=== PATIENT | female | born 1955 | race Caucasian/White ===

== ENCOUNTER → 2020-06-05 11:04 | Outpatient (CLI) | payer OTHER, SELFPAY ==
[2020-06-05 13:07] LABS: COVID19 -Nasal RAPID Negative (Negative)
== END ==
PROVIDERS: PCP Family Medicine; Visit Provider Physician Assistant
DX: Z20.822 Contact with and (suspected) exposure to COVID-19 (principal)
CPT/HCPCS: 87635

== ENCOUNTER 2020-06-07 09:13 | Day surgery (SDC) | payer OTHER, SELFPAY ==
--- NOTE | 2020-06-06 19:32 | P.OP_ITS ---
Operative Date/Time/Diagnoses Date of procedure: 06/07/20 Time of procedure: 10:45 Procedure & Clinicians Procedure: Preoperative diagnoses: 1. Right Significant Nuclear sclerotic cataract 2. Astigmatism which is to be corrected with a toric intraocular lens implant 3. Multiple strabismus surgeries with conjunctival scarring. Prisms. 4. Amblyopia left eye. Postoperative diagnoses: 1. Cataract removal with phacoemulsification with toric posterior chamber int raocular lens implant placed. Procedure: Phacoemulsification with posterior chamber toric intraocular lens implant. Surgeon: Nai Lowery MD Complications: None Specimen: None Implant: DIU 150+18.5 [place] 002 Blood loss: None Anesthesia: General with topical anesthesia Description of procedure: Patient presents with a complaint of decreased vision due to cataract which is affecting activities of daily living distance and near. This was our best seeing eye due to multiple surgeries for strabismus and left eye being severely amblyopic. The patient wants surgery to improve vision and astigmatism. She requests general anesthesia due to anxiety over multiple surgeries as well as need for quick visual recovery as it is her better seeing. She understands the extra risk history the COVID-19 epidemic and desires to proceed. The patient was taken to the operating room and proparacaine drops placed. Indelible ink laws were placed at the 90 and 180 degree meridian. The patient was placed on the operating room table and given IV sedation. A laryngeal mask airway was placed and she was put into position. The eye is manually massaged for 30 sec, prepped using baby shampoo solution due to multiple allergies, and draped in the usual sterile fashion. Topical preservative-free moxifloxacin was placed on the cornea prior to the surgery. Temporal approach was made, a 1 mm side-port incision was made 90? from the proposed corneal wound. Phenylephrine 1.5% mixed with 1% xylocaine 0.2 cc was placed into the anterior chamber. Viscoat followed by Shahid was then placed. A 2.6 mm clear incision with a 2.6 mm blade was placed at the 170 degree meridian. A 360 degree capsulorrhexis style capsulotomy was then performed with a cystitome needle on a Healon. Hydrodelineation and hydrodissection were performed. The phacoemulsification unit is introduced, and sculpting used to groove the central lens. It is then removed in chopping mode. Epi nucleus is removed with epinuclear mode and irrigation aspiration was used to remove the peripheral cortex. The posterior capsule is polished. The intraocular lens is selected, inspected, power confirmed, and placed in the posterior chamber at the desired meridian of 002. The pupil was not constricted. The wound was stromally hydrated and tested for leaks, there was none and it was left sutureless. Vigamox 0.1 cc was placed into the anterior chamber. Kenalog 0.2 cc was placed in the superior subconjunctival space. A drop of antibiotic and was placed and the eye had a protective bandage contact lens placed and then an eye shield. The patient was stable and returned to the recovery room in excellent condition. Dictated by: Nai Lowery MD Copy to: [facility] Same procedure as scheduled: Yes
--- NOTE | 2020-06-06 19:32 | PM.PREOP ---
Pre-operative Note COVID-19 COVID-19 status: Negative Interval Note History & Physical reviewed/Exam performed by Physician: Yes Changes to H&P: No H&P completed within 30 days and has changed as indicated here:: Has allergy to the topical a Betadine and most other preps therefore baby shampoo will be used. Wants general anesthesia as she has had 17 previous eye surgeries and this is her better seeing eye. A laryngeal mask airway will be used.
[2020-06-07] VITALS (7 sets, daily range): BP systolic 139–168; BP diastolic 71–93; PULSE 62–93; RESP 12–16; TEMP 36.1–36.7; O2SAT 91–100; BMI 26.6
[2020-06-07] MEDS: LACTATED RINGERS 1,000 ML 100 ML IV (09:53)
[2020-06-07] MEDS: PROPARACAINE 0.5% OPHTH SOL 2 DROPS EYE-OP (09:55)
[2020-06-07] MEDS: CATARACT EYE COMPOUND (10 DROPS/SYRINGE) 3 DROPS EYE-OP (10:00)
[2020-06-07] MEDS: PHENYLEPHRINE/LIDOCAINE VIAL (OR) 0.2 ML EYE-OP (11:37)
[2020-06-07] MEDS: CHONDROIDTIN/SOD HYALURONATE 1.05 ML SYRINGE INTRAOCULA (11:37)
[2020-06-07] MEDS: TRIAMCINOLONE 50 MG/5 ML VIAL INJ (11:38)
[2020-06-07] MEDS: BALANCED SALT IRRIG SOLN NO.2 500 ML, EPINEPHrine 1 MG IRR (11:40)
[2020-06-07] MEDS: MOXIFLOXACIN INJ 4 MG/0.8 ML VIAL 0.5 MG EYE-OP (11:51)
[2020-06-07] MEDS: HYALURONATE SODIUM 10 MG/ML SYRINGE INJ (11:54)
--- NOTE | 2020-06-07 12:04 | SUR.OPER ---
CHARTED THAT OINTMENT WAS GIVEN, BUT WE DID NOT END UP USING IT SO IT WAS TAKEN OFF MAR
--- NOTE | 2020-06-07 15:02 | SUR.PHASEII ---
D/C instructions done by GABO Banuelos, pt left when ready and left in stable condition.
== END 2020-06-07 12:55 | disposition home or self-care (01) ==
LOC: OR 09:15
PROVIDERS: PCP Family Medicine; Referring Provider Ophthalmology; Visit Provider Ophthalmology
PROC: (CPT 66984; principal; 2020-06-07 10:45)
DX: H25.811 Combined forms of age-related cataract, right eye (principal); H52.201 Unspecified astigmatism, right eye; N18.2 Chronic kidney disease, stage 2 (mild); Z86.16 Personal history of COVID-19
CPT/HCPCS: 66984; J0171; J2704; J3301

== ENCOUNTER → 2020-06-26 11:08 | Outpatient (CLI) | payer OTHER, SELFPAY ==
[2020-06-26 14:43] LABS: COVID19 -Nasal RAPID Negative (Negative)
== END ==
PROVIDERS: PCP Family Medicine; Visit Provider Student in an Organized Health Care Education/Training Program
DX: Z01.812 Encounter for preprocedural laboratory examination (principal); Z20.822 Contact with and (suspected) exposure to COVID-19
CPT/HCPCS: 87635

== ENCOUNTER 2020-06-28 09:20 | Day surgery (SDC) | payer OTHER, SELFPAY ==
--- NOTE | 2020-06-27 17:44 | PM.PREOP ---
Pre-operative Note COVID-19 COVID-19 status: Negative Interval Note History & Physical reviewed/Exam performed by Physician: Yes Changes to H&P: No
--- NOTE | 2020-06-28 08:01 | P.OP_ITS ---
Operative Date/Time/Diagnoses Date of procedure: 06/28/20 Time of procedure: 10:45 Procedure & Clinicians Procedure: Preoperative diagnoses: 1. Left significant combined cortical and nuclear sclerotic cataract 2. Astigmatism which is to be corrected with a toric intraocular lens implant. 3. Need for general anesthesia due to anxiety and scar tissue from 17 previous strabismus surgeries. 4. Multiple allergies. 5. Anxiety disorder 6. Depression 7. Previous COVID-19 without residual effects. 8. Seventeen previous strabismus surgeries. 9. Strabismus with the need for prisms. Postoperative diagnoses: 1. Cataract removal with phacoemulsification with toric posterior chamber intraocular lens implant placed. Procedure: Phacoemulsification with posterior chamber toric intraocular lens implant. Surgeon: Nai Lowery MD Complications: None Specimen: None Implant: [id number]+21.5 [place] 004 -2.00 target Blood loss: None Anesthesia: Retrobulbar with monitored standby Description of procedure: Patient presents with a complaint of decreased vision due to cataract which is affecting activities of daily living especially affecting distance. She has double vision with current on balanced of vision after for surgery and has had multiple strabismus surgeries. The blur is causing increased symptoms and she would like a -2 target to help lessen some of her chronic optimal phenomenon. She also wears prism glasses. She is very happy with her right eye postsurgical result. The patient also wants surgery to improve vision and astigmatism. She requires general anesthesia due to her depressive anxiety disorder and her multiple previous surgeries. She states she would be unable to complete surgery under local. She has had previous COVID-19 disease as well as vaccines. She has tested negative within 72 hours for active iris prior to this procedure. She understands the extra risk for surgery during the COVID-19 epidemic and wishes to proceed. The patient was taken to the operating room and proparacaine drops placed. Indelible ink laws were placed at the 90 and 180 degree meridian. The patient was placed on the operating room table and given IV sedation. A laryngeal mask airway is placed without difficulty. The eye is manually massaged for 30 sec, prepped using Baby Shampoo due to multiple allergies including severe allergies to betadine solution, and draped in the usual sterile fashion. Temporal approach was made, a 1 mm side-port incision was made 90? from the proposed corneal wound. Phenylephrine 1.5% mixed with 1% xylocaine 0.2 cc was placed into the anterior chamber. Viscoat followed by Healon was then placed. A 2.6 mm clear incision with a 2.6 mm blade was placed at the 170 degree meridian. A 360 degree capsulorrhexis style capsulotomy was then performed with a cystitome needle on a Healon. Hydrodelineation and hydrodissection were performed. The phacoemulsification unit is introduced, and sculpting used to groove the central lens. It is then removed in chopping mode. Epi nucleus is removed with epinuclear mode and irrigation aspiration was used to remove the peripheral cortex. The posterior capsule is polished. The intraocular lens is selected, inspected, power confirmed, and placed in the posterior chamber at the desired meridian of 004?. The pupil was not constricted. The wound was stromally hydrated and tested for leaks, there was none and it was left sutureless. Vigamox 0.1 cc was placed into the anterior chamber. Kenalog 0.2 cc was placed in the superior subconjunctival space. A contact lens was placed as a bandage for protection against exposure of the cornea. A drop of antibiotic and was placed and the eye was shielded. The patient was stable and returned to the recovery room in excellent condition. Dictated by: Nai Lowrey MD Copy to: [facility] Same procedure as scheduled: Yes
[2020-06-28] MEDS: PROPARACAINE 0.5% OPHTH SOL 2 DROPS EYE-OP (10:10)
[2020-06-28] MEDS: CATARACT EYE COMPOUND (10 DROPS/SYRINGE) 3 DROPS EYE-OP (10:15)
[2020-06-28 10:18] VITALS: BP 148/81; PULSE 71; RESP 18; TEMP 36.3; O2SAT 98; BMI 26.6
--- NOTE | 2020-06-28 10:21 | SUR.OPER ---
Supine on eye stretcher, head on extension cradle secured with tape. Arms tucked at sides with blanket. Pillow under knees.
[2020-06-28] MEDS: PHENYLEPHRINE/LIDOCAINE VIAL (OR) 0.2 ML EYE-OP (11:11)
[2020-06-28] MEDS: TRIAMCINOLONE 50 MG/5 ML VIAL INJ (11:12)
[2020-06-28] MEDS: MOXIFLOXACIN INJ 4 MG/0.8 ML VIAL 0.5 MG EYE-OP (11:12)
[2020-06-28] MEDS: HYALURONATE SODIUM 10 MG/ML SYRINGE INJ (11:13)
[2020-06-28] MEDS: CHONDROIDTIN/SOD HYALURONATE 1.05 ML SYRINGE INTRAOCULA (11:13)
[2020-06-28] MEDS: BALANCED SALT IRRIG SOLN NO.2 500 ML, EPINEPHrine 1 MG IRR (11:14)
[2020-06-28 11:51] VITALS: BP 146/78; PULSE 66; RESP 15; TEMP 36.4; O2SAT 95
[2020-06-28 11:55] VITALS: BP 148/79; PULSE 59; RESP 13; O2SAT 94
[2020-06-28 12:00] VITALS: BP 154/75; PULSE 59; RESP 12; O2SAT 95
[2020-06-28 12:10] VITALS: BP 139/70; PULSE 57; RESP 16; TEMP 36.4; O2SAT 96
[2020-06-28 12:30] VITALS: BP 135/70; PULSE 60; RESP 16; O2SAT 96
== END 2020-06-28 12:42 | disposition home or self-care (01) ==
LOC: OR 09:22
PROVIDERS: PCP Family Medicine; Referring Provider Ophthalmology; Visit Provider Ophthalmology
PROC: (CPT 66984; principal; 2020-06-28 10:45)
DX: H25.812 Combined forms of age-related cataract, left eye (principal); H52.202 Unspecified astigmatism, left eye; F41.9 Anxiety disorder, unspecified; F32.9 Major depressive disorder, single episode, unspecified; H50.9 Unspecified strabismus; N18.2 Chronic kidney disease, stage 2 (mild); E78.5 Hyperlipidemia, unspecified; E03.9 Hypothyroidism, unspecified; G47.00 Insomnia, unspecified; F51.9 Sleep disorder not due to a substance or known physiological condition, unspecified; D36.10 Benign neoplasm of peripheral nerves and autonomic nervous system, unspecified; Z86.16 Personal history of COVID-19
CPT/HCPCS: 66984; J0171; J2250; J2405; J2704; J3010; J3301; V2787

== ENCOUNTER 2021-03-12 14:17 | Emergency (ER) | payer OTHER, SELFPAY ==
[2021-03-12 14:41] VITALS: BP 173/88; PULSE 83; RESP 18; TEMP 36.3; O2SAT 99; BMI 26.6
--- NOTE | 2021-03-12 15:10 | DI.MRI.S_ITS ---
PROCEDURE: MR LUMBAR SPINE WO CON INDICATIONS: left leg weakness, urinary incontinence, back pain, TECHNIQUE: Noncontrast sagittal T1 spin echo and T2 fast echo, sagittal STIR, axial T1 and T2 fast spin echo through the lumbar spine. In cases with scoliosis, additional coronal T2 fast spin echo may be performed. COMPARISON: None. FINDINGS: Image quality: Excellent. Alignment and Curvature: There is trace L2-L3 retrolisthesis. Bone Marrow: Modic type 2 reactive endplate changes noted adjacent to the L2-L3 disc. Mixed Modic type 1 and type 3 reactive endplate changes noted adjacent to the L5-S1 disc. No acute vertebral body compression fractures. Spinal Cord: Conus medullaris terminates at the L1-2 disc level. Visualized cord demonstrates normal signal and size. Paraspinous Soft Tissues: No paravertebral masses. T12-L1: Normal appearance. L1-L2: Normal appearance. L2-L3: Loss of disc signal and slight loss of disc height. Mild, diffuse disc bulge. Mild narrowing of the central canal. Mild bilateral neural foraminal narrowing. No neural compression. L3-L4: Loss of disc signal and slight loss of disc height. Mild, diffuse disc bulge. Mild narrowing of the central canal. Mild bilateral neural foraminal narrowing. No neural compression. L4-L5: Loss of disc signal. Mild, diffuse disc bulge. Mild bilateral facet hypertrophy. Mild narrowing of the central canal. Mild bilateral neural foraminal narrowing. No neural compression. L5-S1: Loss of disc signal and height. Moderate, diffuse disc bulge. Mild bilateral facet hypertrophy. No central stenosis. Mild to moderate bilateral neural foraminal narrowing. No neural compression. IMPRESSION: 1. Multilevel degenerative disc disease. 2. Multilevel facet arthropathy. 3. No severe central canal narrowing. 4. No severe neural foraminal narrowing. 5. No neural compression. Dictated by: Kimberly Calderon MD, PhD on 03/12/2021 at 15:07 Approved by: Kimberly Calderon MD, PhD on 03/12/2021 at 15:11
--- NOTE | 2021-03-12 15:11 | ED_ITS ---
HPI - Back Pain/Injury General Chief Complaint: Back Pain/Injury Stated Complaint: Severe Back Pain, Neurological Symptoms Time Seen by Provider: 03/12/21 14:52 Source: patient Mode of arrival: Ambulatory Limitations: no limitations History of Present Illness HPI Narrative: This is a 65-year-old female sent by Dr. Hanna from the [facility] for concern for possible cauda equina Patient has had back pain in lower lumbar region which has been progressive for several weeks she has had increasing urinary incontinence. She had some stress incontinence before but now does not even have a sensation that she is about to urinate for several months but worsening over the past 3 weeks. She does notice make it to the bathroom. She does not have any stressors. She is also appreciated some weakness in her foot with lifting. Patient is able to ambulate. Patient denies any new numbness or tingling. She has not had any fecal incontinence. She is on medication for dyslipidemia and hypothyroidism. Related Data Home Medications Medication Instructions Recorded Confirmed atorvastatin 20 mg tablet 20 mg PO BEDTIME 06/06/20 06/28/20 estradiol (Estring) 7.5 mcg VAGINAL Q3M 06/06/20 06/28/20 fluoxetine 40 mg capsule (Prozac) 20 mg PO DAILY 06/06/20 06/28/20 levothyroxine 88 mcg tablet 88 mcg PO DAILY 06/06/20 06/28/20 trazodone 50 mg tablet 100 mg PO BEDTIME PRN 06/06/20 06/28/20 Lactobacillus rhamnosus GG 10 1 cap PO DAILY 06/28/20 06/28/20 billion cell capsule (Culturelle) biotin 5,000 mcg sublingual tablet 1 mcg SUBLINGUAL DAILY 06/28/20 06/28/20 calcium citrate 315 mg-vitamin D3 2 tab PO DAILY 06/28/20 06/28/20 5 mcg (200 unit) tablet lutein 20 mg tablet 20 mg PO DAILY 06/28/20 06/28/20 Allergies Allergy/AdvReac Type Severity Reaction Status Date / Time vancomycin Allergy Intermediate rash hives Verified 03/12/21 14:48 Iodine and Iodide Containing Allergy Mild rash hives Verified 03/12/21 14:48 Produc shellfish derived Allergy Mild Rash Verified 03/12/21 14:48 cephalexin Allergy Unknown rash hives Verified 03/12/21 14:48 ciprofloxacin Allergy Unknown rash hives Verified 03/12/21 14:48 doxycycline Allergy Unknown rash hives Verified 03/12/21 14:48 gentamicin Allergy Unknown rash hives Verified 03/12/21 14:48 Sulfa (Sulfonamide Allergy Unknown rash hives Verified 03/12/21 14:48 Antibiotics) Review of Systems Review of Systems ROS Unobtainable: All systems reviewed & are unremarkable except as noted in HPI and below Patient History Medical History Chronic kidney disease, stage 2 (mild) COVID-19 Depression Ganglion cyst of volar aspect of left wrist Hypercholesteremia Hypothyroidism Insomnia Left wrist fracture Neurofibroma Right carpal tunnel syndrome Schwannoma Strabismus Surgical History H/O: hysterectomy History of dilatation and curettage History of strabismus surgery History of tonsillectomy Social History household members: spouse Smoking Status: Never smoker alcohol intake: current Smoking Status: Never smoker alcohol intake frequency: a few times a week Substance Use Type: does not use Exam Narrative Exam Narrative: GENERAL: Alert and oriented x three, female in mild distress. HEENT: Head normocephalic, atraumatic, EOMI, pupils reactive, face symmetric, moist mucous membranes NECK: Supple, full range of motion CARDIOVASCULAR: Regular rate and rhythm without murmurs, rubs or gallops. RESPIRATORY: Breath sounds equal bilaterally, no wheezes rales or rhonchi. ABDOMEN: Soft, nontender. Normoactive bowel sounds all 4 quadrants. No guarding or rebound, rigidity, no mass : No CVA tenderness BACK: No cervical, thoracic or lumbar vertebral point tenderness. Patient has normal range of motion. Patient's gait, patient has some mild inversion of the left but otherwise normal gait. Rectal exam is deferred. No saddle anesthesia. Muscle strength is 5/5 in lower extremities, DTRs are 2/4 and lower extremities. Dorsalis pedis and tibialis pulses are 2+ and lower extremities. Sensation is intact in the lower extremities. EXTREMITIES: Normal range of motion, no clubbing or edema. Neurovascularly intact NEUROLOGICAL: Cranial nerves II through XII grossly intact. Moving all extremities SKIN: Warm, dry, no petechiae, no rashes or lesions. Initial Vital Signs Initial Vital Signs: Vital Signs Temperature 97.3 F L 03/12/21 14:41 Pulse Rate 83 03/12/21 14:41 Respiratory Rate 18 03/12/21 14:41 Blood Pressure 173/88 H 03/12/21 14:41 Pulse Oximetry 99 03/12/21 14:41 Course Orders Ordered: ED Orders 03/12/21 15:10 MR lumbar spine wo con Stat Discontinued Medications Diazepam (Diazepam 5 Mg Tablet) 10 mg PO NOW ONE Stop: 03/12/21 15:11 Last Admin: 03/12/21 15:16 Dose: 10 mg Documented by: EDGARD Vital Signs Vital signs: Vital Signs - 8 hr 03/12/21 14:41 Temperature 97.3 F L Pulse Rate 83 Respiratory Rate 18 Blood Pressure 173/88 H Pulse Oximetry 99 MDM - Back Pain/Injury Imaging Data MRI Lumbar spine: Radiologist's Impression: [address] Magnetic Resonance Report Signed Patient: America Hinds MR#: [id number] : 1955 Acct:[id number] Age/Sex: 65 / F Date of Service: 03/12/21 Loc: ED Accession Number: [id number] ?? Procedure: MR lumbar spine wo con Ordering Provider: Laura Anna D.O. PROCEDURE:? MR LUMBAR SPINE WO CON ? INDICATIONS:? left leg weakness, urinary incontinence, back pain, ? TECHNIQUE:? Noncontrast sagittal T1 spin echo and T2 fast echo, sagittal STIR, axial T1 and T2 fast spin echo through the lumbar spine.? In cases with scoliosis, additional coronal T2 fast spin echo may be performed.? ? COMPARISON:? None. ? FINDINGS:? Image quality:? Excellent.? ? Alignment and Curvature:? There is trace L2-L3 retrolisthesis. ? Bone Marrow:? Modic type 2 reactive endplate changes noted adjacent to the L2-L3 disc.? Mixed Modic type 1 and type 3 reactive endplate changes noted adjacent to the L5-S1 disc. ?No acute vertebral body compression fractures.? ? Spinal Cord:? Conus medullaris terminates at the L1-2 disc level.? Visualized cord demonstrates normal signal and size.? ? Paraspinous Soft Tissues:? No paravertebral masses.? ? T12-L1:? Normal appearance.? ? L1-L2:? Normal appearance.? ? L2-L3:? Loss of disc signal and slight loss of disc height.? Mild, diffuse disc bulge.? Mild narrowing of the central canal.? Mild bilateral neural foraminal narrowing.? No neural compression. ? L3-L4:? Loss of disc signal and slight loss of disc height.? Mild, diffuse disc bulge.? Mild narrowing of the central canal.? Mild bilateral neural foraminal narrowing.? No neural compression. ? L4-L5:? Loss of disc signal.? Mild, diffuse disc bulge.? Mild bilateral facet hypertrophy.? Mild narrowing of the central canal.? Mild bilateral neural foraminal narrowing.? No neural compression. ? L5-S1:? Loss of disc signal and height.? Moderate, diffuse disc bulge.? Mild bilateral facet hypertrophy.? No central stenosis.? Mild to moderate bilateral neural foraminal narrowing.? No neural compression. ? ? IMPRESSION:? ? 1. Multilevel degenerative disc disease. ? 2. Multilevel facet arthropathy. ? 3. No severe central canal narrowing. ? 4. No severe neural foraminal narrowing. ? 5. No neural compression.? ? ? Dictated by: Kimberly Calderon MD, PhD on 03/12/2021 at 15:07 ? ? Approved by: Kimberly Calderon MD, PhD on 03/12/2021 at 15:11?? [facility] Narrative Medical decision making narrative: This is a 65-year-old female who has had back pain with worsening footdrop and what was initially stress incontinence which has become significantly worse and now just has loss of urine control. She has not any fecal changes but is concerning for possible cauda equina. Her physical exam is actually somewhat reassuring but her symptoms are concerning. Lumbar L-spine was obtained which does not show any impingement shows some degenerative changes likely causing her pain but not the cause of her other symptoms. We discussed having her follow-up with Urology and she is seeing PT in her primary care for the changes with her lower extremity. I am not finding any source of emergent or dangerous causes her symptoms. Patient was provided with a disc of her MRI results. Discharge Plan Departure Patient Disposition: Home Clinical Impression: Low back pain Activity Restrictions/Additional Instructions: Follow-up with your physician. Your MRI today shows some degenerative disc changes and arthropathy but no sever e narrowing of the spinal cord or the spaces in between the bones. Please return for fevers, worsening weakness, loss of sensation, worsening incontinence or other new or concerning symptoms. Prescriptions: No Action fluoxetine [Prozac] 40 mg Capsule 20 mg PO DAILY 0RF atorvastatin 20 mg tablet 20 mg PO BEDTIME 0RF trazodone 50 mg tablet 100 mg PO BEDTIME PRN (Reason: Insomnia) 0RF levothyroxine 88 mcg tablet 88 mcg PO DAILY 0RF Estring 2 mg (7.5 mcg /24 hour) ring 7.5 mcg vaginal Q3M 0RF Label Comments: every 90 days calcium citrate-vitamin D3 [Citracal plus D] 315 mg-5 mcg (200 unit) Tablet 2 tab PO DAILY 0RF Culturelle 10 billion cell Capsule 1 cap PO DAILY 0RF lutein 20 mg Tablet 20 mg PO DAILY 0RF biotin 5,000 mcg Tablet, Sublingual 1 mcg SUBLINGUAL DAILY 0RF Referrals: Laura Cat MD [Primary Care Provider] -
[2021-03-12] MEDS: diazePAM 5 MG TABLET 10 MG PO (15:16)
== END 2021-03-12 17:22 | disposition home or self-care (01) ==
PROVIDERS: Emergency Provider Emergency Medicine; PCP Family Medicine
DX: M54.50 Low back pain, unspecified (principal)
CPT/HCPCS: 72148; 99284

== ENCOUNTER → 2023-06-26 14:08 | Outpatient (CLI) | payer OTHER, MEDICARE, SELFPAY ==
--- NOTE | 2023-06-28 02:59 | DI.NM.S_ITS ---
DATE OF SERVICE: 06/26/2023 PROCEDURE: Exercise treadmill, converted to pharmacologic vasodilator stress and rest myocardial perfusion imaging study with gating to assess ejection fraction and regional wall motion. ORDERING PROVIDER: Jareth Blanco MD INDICATIONS: The patient is a 67-year-old female with symptomatic nonsustained ventricular tachycardia. CARDIAC STRESS: The patient was initially stressed by treadmill and was able to exercise for 5 minutes on a standard Shay protocol, suggesting moderately reduced exercise capacity with an GILMAR of +30%, achieving 7.0 METS. She was able to achieve a maximum heart rate of only 109 BPM and therefore was converted to a pharmacologic study with the injection of 0.4 mg of regadenoson. With exercise, she had a hypertensive blood pressure response with a resting blood pressure of 170/100, increasing to 200/100. She had a normal hemodynamic response to regadenoson. She had mild dyspnea but had no chest discomfort with exercise or pharmacologic stress. Her resting ECG showed sinus rhythm with normal ST segments, and there were no significant ST-segment shifts with stress. She had occasional isolated PVCs but no complex ventricular ectopy. Per protocol, 25.6 millicuries of technetium-99m Myoview was injected and she was imaged 15 minutes later using a gated SPECT acquisition protocol. The day prior while at rest, she had been injected with 25.1 millicuries of technetium-99m Myoview and was imaged 15 minutes later, again using a gated SPECT acquisition protocol. FINDINGS: 1. Raw data. There is fair myocardial tracer uptake with fairly prominent breast shadows noted, more notable on the post-stress images. The lung/heart ratio is normal at 0.32 with a normal TID ratio of 0.98. 2. Quantitated gated SPECT: Post-stress ejection fraction is 74% without any focal wall motion abnormality and specifically the distal anterior wall has normal, brisk contractility. The resting ejection fraction is 70% with a normal resting end-diastolic volume of 87 mL. 3. Myocardial perfusion imaging: Post-stress supine images show a mild perfusion defect in the distal anterior wall in a pattern consistent with breast attenuation artifact, supported by its complete resolution on the prone images which reveal a normal, homogeneous pattern of tracer activity. There are no other perfusion defects. The resting images show a similar perfusion pattern, although with the defect shifting of slightly medially, suggesting differential breast positioning, but no significant improvement in the perfusion defect. IMPRESSION: 1. Normal myocardial perfusion study. 2. Mild, fixed mid to distal anterior defect that completely resolves on prone imaging, most consistent with breast attenuation artifact. There is no evidence for any significant myocardial ischemia. 3. Normal left ventricular size and systolic function without any focal wall motion abnormality. 4. Moderately reduced exercise capacity without angina or ECG evidence of ischemia with exercise or pharmacologic stress. She was hypertensive at rest with a mild hypertensive blood pressure response to exercise. She had occasional PVCs, but no complex ventricular ectopy with stress. America Hinds - RS/minal/ doc#: [id number]/job#: [id number] dd: 06/27/2023 17:04:00 dt: 06/28/2023 02:24:00 DICTATING MD/COPIES TO: Félix Joel MD; Jareth Blanco MD COPIES MNE: ALIX;
== END ==
PROVIDERS: PCP Family Medicine; Referring Provider Internal Medicine Cardiovascular Disease; Visit Provider Internal Medicine Cardiovascular Disease
DX: I47.20 Ventricular tachycardia, unspecified (principal); I45.81 Long QT syndrome; I10 Essential (primary) hypertension; I49.3 Ventricular premature depolarization
CPT/HCPCS: 78452; 93017; A9502; J2785